=== PATIENT | female | born 1965 | race Caucasian/White ===

== ENCOUNTER 2017-08-03 06:33 | Day surgery (SDC) | payer OTHER ==
[2017-08-02 10:39] VITALS: BMI 20.2
[2017-08-03] VITALS (12 sets, daily range): BP systolic 110–140; BP diastolic 53–83; PULSE 67–86; RESP 16–19; Ht 165.1 cm; Wt 52.8 kg
[~2017-08-03] VITALS: Ht 165.1 cm; Wt 52.8 kg
[2017-08-03] MEDS ORDERED: LIDOCAINE 2% (SDV) 5 ML INJ ONE (08:00)
[2017-08-03] MEDS ORDERED: PROPOFOL 20 ML ONE (08:00)
--- NOTE | 2017-08-03 08:00 | HPN ---
Date/Time of Note Date/Time of Note DATE: 08/03/17 TIME: 08:00 Interval H&P Admission Note Pt. seen H&P reviewed: No system changes REGINA GUZMAN DPM Aug 03, 2017 08:00
[2017-08-03] MEDS ORDERED: MEPERIDINE 100 MG INJ ONE (08:01)
[2017-08-03] MEDS ORDERED: ONDANSETRON 4 MG INJ ONE (08:01)
[2017-08-03] MEDS ORDERED: METOCLOPRAMIDE 10 MG INJ ONE ×2 (08:01→10:20)
[2017-08-03] MEDS ORDERED: BUPIVACAINE 0.5% (SDV) 30 ML INJ ONE (08:02)
[2017-08-03] MEDS ORDERED: POVIDONE IODINE 10% 28.4 GM OINT ONE (08:02)
[2017-08-03] MEDS ORDERED: LIDOCAINE 1% (MPF) 30 ML INJ ONE (08:02)
[2017-08-03] MEDS ORDERED: DEXAMETHASONE 4 MG/ML 1 ML INJ ONE (08:02)
[2017-08-03] MEDS ORDERED: FENTAnyl 50 MCG/ML VIAL ONE (10:20)
[2017-08-03] MEDS: FENTAnyl 50 MCG/ML VIAL IV PRN ×4 (10:28→11:04)
[2017-08-03] MEDS ORDERED: ONDANSETRON 4 MG INJ IV PRN (10:30)
[2017-08-03] MEDS ORDERED: FENTAnyl 50 MCG/ML VIAL IV PRN ×2 (10:30)
[2017-08-03] MEDS ORDERED: DIPHENHYDRAMINE 50 MG INJ IV PRN (10:30)
[2017-08-03] MEDS ORDERED: MIDAZOLAM 1 MG/ML 2 ML INJ IV PRN (10:30)
[2017-08-03] MEDS ORDERED: METOCLOPRAMIDE 10 MG INJ IV PRN (10:30)
[2017-08-03] MEDS ORDERED: MEPERIDINE 25 MG INJ IV PRN (10:30)
[2017-08-03] MEDS ORDERED: OXYCODONE/ACETAMINOPHEN (5/325) TAB PO PRN ×2 (10:30)
--- NOTE | 2017-08-03 10:43 | SIPON ---
Date/Time of Note Date/Time of Note DATE: 08/03/17 TIME: 10:40 Operative Report Preoperative Diagnosis Osteo-arthritis first metatarsal phalangeal joint right Postoperative Diagnosis SAME Operation/Procedure Performed partial ostectomy with cartiva implant and epifix application first metatarsal phalangeal joint right Surgeon see signature line communications assistant none Anesthesia: general Estimated blood loss: minimal Transfusion Required none Specimen bone Grafts/Implants cartiva implant and epifix Complications none REGINA GUZMAN DPM Aug 03, 2017 10:43
--- NOTE | 2017-08-03 13:42 | PREOPHP ---
DATE OF ADMISSION: 08/03/2017 HISTORY OF PRESENT ILLNESS: The patient is being admitted to the hospital for elective foot surgery. Palliative treatment unsuccessful. The patient has been explained surgery, complications, alternatives, and elected to have elective foot surgery. The patient is having problem with movement at the first metatarsophalangeal joint on the right foot. ALLERGIES: MORPHINE. MEDICATIONS: She is on Depo-Provera hormone. REVIEW OF SYSTEMS: Showed no heart, lung, liver, kidney or thyroid problems, no diabetes. SOCIAL HISTORY: Does not smoke. Occasional alcohol. PHYSICAL EXAMINATION: See other pertinent history and upper extremity physical exam by Dr. Wei. LOWER EXTREMITIES: Physical exam shows the DP and PT equal and regular. Neurological negative for pathology. Dermatology negative for pathology. Musculoskeletal shows a deformed or osteoarthritic first metatarsophalangeal joint on the right foot. FINAL DIAGNOSIS: Osteoarthritis, first metatarsophalangeal joint, right foot. Dictated By: Boni Gunn DPM /bert/yuri /Document#: [id number]
--- NOTE | 2017-08-03 20:41 | OPR ---
DATE OF OPERATION: 08/03/2017 PREOPERATIVE DIAGNOSIS: Osteoarthritis 1st metatarsophalangeal joint, right foot. POSTOPERATIVE DIAGNOSIS: Osteoarthritis 1st metatarsophalangeal joint, right foot. OPERATION PERFORMED: Partial ostectomy 1st metatarsal, right foot with Cartiva implant and application of EpiFix. SURGEON: Saulo Gunn DPM OPERATIVE PROCEDURE: The patient was brought to the surgical suite and placed in the supine position. Patient was under general anesthesia. The patient had sterile prep and drape, and the patient had the tourniquet at [facility]. Findings were consistent with the pre and postop diagnosis. First incision was a dorsal longitudinal incision over the 1st metatarsophalangeal joint using sharp and blunt dissection. Incision was carried deep. The Bovie was used as necessary. A longitudinal capsulotomy was made in the head of the 1st metatarsal and freed of its attachment in the base of the proximal phalanx was freed. The area was remodeled using rongeur rasped technique and then the Cartiva implant was placed in the center of the distal part of the head of the 1st metatarsal. A size 8 Cartiva implant 8 mm was used. The patient had good movement and no complications and the area then had application of EpiFix over it and then a 3-0 Vicryl was used to coaptate the subcutaneous tissue and the skin was coaptated using 5-0 nylon. The area was injected with 0.5 percent Marcaine to prolong anesthesia and a dressing of half inch Steri-Strips, Betadine ointment, 4 by 4s impregnated with Betadine solution and Prosper with an outer layer of Coban made into a semicompressive dressing was applied. The patient tolerated surgery well and was returned to recovery room in satisfactory condition. Dictated By: Boni Gunn DPM /bert/heather /Document#: [id number]
== END 2017-08-03 12:23 | disposition home or self-care (01) ==
LOC: SDS 06:33 → EDSTATUS 08:00 → SDS 12:23
PROVIDERS: ATTEND Podiatrist
DX: M19.071 Primary osteoarthritis, right ankle and foot (principal); E78.5 Hyperlipidemia, unspecified
CPT/HCPCS: 28122; J2175; J2405; J2765; J3010; L3260; Z7512; Z7610; J1100